=== PATIENT | female | born 1985 | race Caucasian/White ===

== ENCOUNTER 2024-02-17 14:45 | Outpatient (CLI) | payer SELFPAY ==
[2024-02-17 22:54] LABS: BACTERIAL VAGINOSIS DNA NEGATIVE (NEGATIVE); CANDIDA GLABRATA DNA NEGATIVE (NEGATIVE); CANDIDA GROUP DNA NEGATIVE (NEGATIVE); CANDIDA KRUSEI DNA NEGATIVE (NEGATIVE); TRICHOMONAS VAGINALIS DNA NEGATIVE (NEGATIVE)
[2024-02-18] LABS: CHLAMYDIA TRACHOMATIS DNA NEGATIVE (NEGATIVE); NEISSERIA GONORRHOEAE DNA NEGATIVE (NEGATIVE)
== END 2024-02-17 15:00 | disposition home or self-care (01) ==
LOC: LAB.N 14:45
PROVIDERS: ATTEND Family Medicine
DX: Z11.3 Encounter for screening for infections with a predominantly sexual mode of transmission (principal); N90.89 Other specified noninflammatory disorders of vulva and perineum
CPT/HCPCS: 81514; 86592; 86695; 86696; 86803; 87255; 87389; 87491; 87529; 87591; 87661